=== PATIENT | female | born 1950 | race Caucasian/White ===

== ENCOUNTER → 2016-06-13 | Outpatient (CLI) | payer MEDICARE, OTHER | LOC: MW.CHFP 15:47 | PROVIDERS: ATTEND Emergency Medicine | DX: I10 Essential (primary) hypertension (principal); Z53.9 Procedure and treatment not carried out, unspecified reason ==

== ENCOUNTER → 2016-06-20 | Outpatient (CLI) | payer MEDICARE, OTHER ==
[2016-06-20 10:49] LABS: CHLORIDE,CL 98 mmol/L (98-110); SODIUM,NA 130 mmol/L (136-146)
== END ==
LOC: MW.CHFP 09:56
PROVIDERS: ATTEND Emergency Medicine
DX: I10 Essential (primary) hypertension (principal); E87.1 Hypo-osmolality and hyponatremia
CPT/HCPCS: 36415; 80053; 80061; 99214

== ENCOUNTER 2019-03-18 07:40 | Day surgery (SDC) | payer MEDICARE, OTHER ==
[~2019-03-18 07:40] MED LIST: 50% Dextrose in Water 50 ML Syringe IVPUSH PRN; Albuterol 0.083% 2.5 MG/3 ML Neb Soln NEB PRN; Atropine 0.1 MG/ML 10 ML Syringe IVPUSH PRN; EPINEPHrine 1:10,000 1 MG/10 ML Syringe IVPUSH PRN; Lactated Ringers 1,000 ML IV SCH; Midazolam 1 MG/ML 2 ML SDV ONE; Naloxone 0.4 MG/ML Syringe IVPUSH PRN; Phenylephrine 1% 10 MG/ML SDV ONE; Propofol 200 MG/20 ML SDV ONE; ePHEDrine 50 MG/ML SDV ONE; fentaNYL 100 MCG/2 ML SDV IVPUSH PRN; fentaNYL 100 MCG/2 ML SDV ONE
--- NOTE | 2019-03-18 08:17 | PCM.PREANE ---
Preanesthetic Assessment - Anesthesia/Transfusion/Family Hx Anesthesia History: Prior Anesthesia Without Reaction Other Type of Anesthesia Reaction Comment: "my father could not take anesthesia " "no problems myself" Family History of Anesthesia Reaction: No Transfusion History: Prior Transfusion Without Reaction Intubation History: Unknown - Review of Systems General: No Symptoms Pulmonary: No Symptoms Cardiovascular: No Symptoms Gastrointestinal: Other (change in bowel habits and rectal 'leaking') Neurological: No Symptoms Other: Reports: None - Physical Assessment Height: 5 ft 7 in Weight: 77.111 kg ASA Class: 2 Mental Status: Alert & Oriented x3 Airway Class: Mallampati = 2 Dentition: Reports: Normal Dentition Thyro-Mental Finger Breadths: 3 Mouth Opening Finger Breadths: 3 ROM/Head Extension: Full Lungs: Clear to Auscultation, Normal Respiratory Effort Cardiovascular: Regular Rate, Regular Rhythm - Allergies Allergies/Adverse Reactions: Allergies Allergy/AdvReac Type Severity Reaction Status Date / Time acetaminophen [From Percocet] Allergy "my body Unverified 03/14/19 10:47 wouldnt accept it" codeine Allergy "my body Unverified 03/14/19 10:47 wouldnt accept it" meperidine HCl [From Demerol] Allergy "my Unverified 03/14/19 10:47 wouldnt accept it" morphine Allergy "my Unverified 03/14/19 10:47 wouldnt accept it" oxycodone HCl [From Percocet] Allergy "my body Unverified 03/14/19 10:47 wouldnt accept it" propoxyphene Allergy "my body Verified 03/14/19 10:47 [From Darvocet-N] wouldnt accept it" - Blood Blood Available: No - Anesthesia Plan Pre-Op Medication Ordered: None - Acknowledgements Anesthesia Type Planned: MAC Pt an Appropriate Candidate for the Planned Anesthesia: Yes Alternatives and Risks of Anesthesia Discussed w Pt/Guardian: Yes Pt/Guardian Understands and Agrees with Anesthesia Plan: Yes PreAnesthesia Questionnaire HEENT History: Reports: None Cardiovascular History: Reports: Hypertension, Other (See Below) (h/o lip angioedema 5 months ago - reason unknown, most likely due to medication change) Respiratory History: Reports: None Gastrointestinal History: Reports: None Genitourinary History: Reports: None Musculoskeletal History: Reports: Fracture, Osteoarthritis Neurological History: Reports: None, Vertigo (paroxysmal positional vertigo- not last year or two) Psychiatric History: Reports: None Endocrine/Metabolic History: Reports: None Hematologic History: Reports: Blood Transfusion(s) Immunologic History: Reports: None Oncologic (Cancer) History: Reports: None Dermatologic History: Reports: None - Past Surgical History Head Surgeries/Procedures: Reports: None HEENT Surgical History: Reports: None Cardiovascular Surgical History: Reports: None Respiratory Surgical History: Reports: None GI Surgical History: Reports: Other (See Below) Other GI Surgeries/Procedures: 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 ( 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 surgeries over 6 years due to this injury) Female Surgical History: Reports: Breast Implant Endocrine Surgical History: Reports: None Neurological Surgical History: Reports: None Musculoskeletal Surgical History: Reports: Hip Replacement, Other (See Below) Other Musculoskeletal Surgeries/Procedures:: ORIF of left humerous, tyshawn total hip arthroplasties Oncologic Surgical History: Reports: None Dermatological Surgical History: Reports: None - SUBSTANCE USE Smoking Status *Q: Current Some Day Smoker Tobacco Use Within Last Twelve Months: Cigarettes - HOME MEDS Home Medications: Home Meds Chlorthalidone 25 mg PO DAILY 03/14/19 [History] Cholecalciferol (Vitamin D3) [Vitamin D3] 1,000 units PO DAILY 03/14/19 [History ] Multivitamin [My Favorite Multiple] 1 dose PO DAILY 03/14/19 [History] amLODIPine [Norvasc] 5 mg PO DAILY 03/14/19 [History] - CURRENT (IN HOUSE) MEDS Current Meds: Current Medications Albuterol (Proventil Neb Soln) 2.5 mg NEB ONETIME PRN PRN Reason: Wheezing Atropine Sulfate (Atropine 0.1 Mg/Ml) 0.5 mg IVPUSH ASDIRECTED PRN PRN Reason: Hypo-perfusion Stop: 03/19/19 07:31 Atropine Sulfate (Atropine 0.1 Mg/Ml) 1 mg IVPUSH ASDIRECTED PRN PRN Reason: Hypo-Perfusion Dextrose/Water (Dextrose 50% In Water) 50 ml IVPUSH ASDIRECTED PRN PRN Reason: Hypoglycemia Epinephrine HCl (Epinephrine 1:10,000) 1 mg IVPUSH ASDIRECTED PRN PRN Reason: ACLS Guidelines Fentanyl (Sublimaze) 50 mcg IVPUSH Q5M PRN PRN Reason: Pain Lactated Ringer's (Ringers, Lactated) 1,000 mls @ 125 mls/hr IV ASDIRECTED GEN Naloxone HCl (Narcan) 0.1 mg IVPUSH ASDIRECTED PRN PRN Reason: Respiratory Depression Discontinued Medications Ephedrine Sulfate (Ephedrine Sulfate) Confirm Administered Dose 50 mg .ROUTE .STK-MED ONE Stop: 03/18/19 07:16 Fentanyl (Sublimaze) Confirm Administered Dose 100 mcg .ROUTE .STK-MED ONE Stop: 03/18/19 07:14 Midazolam HCl (Versed 1 Mg/Ml) Confirm Administered Dose 2 mg .ROUTE .STK-MED ONE Stop: 03/18/19 07:14 Phenylephrine HCl ([place]if[place]-Synephrine) Confirm Administered Dose 10 mg .ROUTE .STK- MED ONE Stop: 03/18/19 07:16 Propofol (Diprivan 20 Ml) Confirm Administered Dose 200 mg .ROUTE .STK-MED ONE Stop: 03/18/19 07:14
[2019-03-18] MEDS ORDERED: Midazolam 1 MG/ML 2 ML SDV ONE (08:26)
[2019-03-18] MEDS ORDERED: Lactated Ringers 1,000 ML IV SCH (09:00)
--- NOTE | 2019-03-18 09:01 | PCM.OPNOTE ---
- General Post-Op/Procedure Note Date of Surgery/Procedure: 03/18/19 Operative Procedure(s): Colonoscopy with multiple cold polypectomies from the cecum, ascending colon, transverse colon and rectum. Pre Op Diagnosis: Change in bowel habits. Rectal leakage. Post-Op Diagnosis: Cecum, ascending colon, transverse colon and rectal polyps Anesthesia Technique: MAC (ASA II) Primary Surgeon: Christiano Soto Condition: Good Free Text/Narrative:: DICTATION [id number] CPT CODE [id number]
--- NOTE | 2019-03-18 09:19 | PCM.POSTAN ---
POST ANESTHESIA ASSESSMENT - MENTAL STATUS Mental Status: Alert, Oriented - VITAL SIGNS Vital Signs: Last Vital Signs Temp 36.3 C 03/18/19 08:59 Pulse 66 03/18/19 09:14 Resp 17 03/18/19 09:14 BP 106/69 03/18/19 09:14 Pulse Ox 95 03/18/19 09:14 - RESPIRATORY Respiratory Status: Respiratory Rate WNL, Airway Patent, O2 Saturation Stable - CARDIOVASCULAR CV Status: Pulse Rate WNL, Blood Pressure Stable - GASTROINTESTINAL GI Status: No Symptoms - PAIN Pain Score: 0 - POST OP HYDRATION Hydration Status: Adequate & Stable - OBSERVATIONS Free Text/Narrative:: no anesthesia problems
--- NOTE | 2019-03-18 09:34 | PCM48HPAN ---
Post Anesthesia Note - EVALUATION WITHIN 48HRS OF ANESTHETIC Vital Signs in Normal Range: Yes Patient Participated in Evaluation: Yes Respiratory Function Stable: Yes Airway Patent: Yes Cardiovascular Function Stable: Yes Hydration Status Stable: Yes Pain Control Satisfactory: Yes Nausea and Vomiting Control Satisfactory: Yes Mental Status Recovered: Yes Vital Signs: Last Vital Signs Temp 36.3 C 03/18/19 08:59 Pulse 66 03/18/19 09:14 Resp 17 03/18/19 09:14 BP 106/69 03/18/19 09:14 Pulse Ox 95 03/18/19 09:14 - COMMENTS/OBSERVATIONS Free Text/Narrative:: no anesthesia problems
[2019-03-18 11:35] VITALS: BP 106/70; PULSE 73
--- NOTE | 2019-03-18 14:33 | OR ---
SURGEON: Christiano Soto M.D. DATE OF PROCEDURE: 03/18/2019 OPERATION PERFORMED: Colonoscopy with multiple cold polypectomies from the cecum, ascending colon, transverse colon, and rectum. PRIMARY SURGEON: Christiano Soto MD. ANESTHESIA: MAC ASA CLASSIFICATION: II. PREOPERATIVE DIAGNOSES: 1. Change in bowel habits. 2. Rectal incontinence. POSTOPERATIVE DIAGNOSIS: Colon polyps identified in the cecum, ascending colon, transverse colon, and rectum. DESCRIPTION OF PROCEDURE: The patient was taken to the endoscopy room and positioned on the endoscopy cart in the left lateral decubitus position. Time-out was called for appropriate identification of the patient and procedure. Monitored anesthesia care was provided. The colonoscope was inserted into the rectum and advanced with minimal difficulty to the cecum. The colonoscope was retroflexed to visualize the ascending colon from below, then straightened and slowly withdrawn. One small polyp was encountered in the cecum and this was removed with the cold biopsy forceps. A second polyp was encountered in the ascending colon and also removed with the cold biopsy forceps. The remainder of the ascending colon, hepatic flexure, and proximal transverse colon showed no tumors, polyps, diverticula, or angiodysplastic changes. A third polyp was encountered in the mid transverse colon and removed with the cold biopsy forceps. Remainder of the transverse colon, splenic flexure, descending colon, and sigmoid colon showed no other tumors, polyps, diverticula, or angiodysplastic changes. Two small polyps were encountered in proximity in the rectum and also removed with the cold biopsy forceps. The colonoscope was then retroflexed to visualize the anal orifice from above. No tumors, polyps, or acute hemorrhoidal changes were noted. The colonoscope was then straightened, the rectum aspirated, and the colonoscope removed. The patient tolerated the procedure well and was taken to recovery room in stable condition. DIANA / LUCIA /[id number]
== END 2019-03-18 09:55 | disposition home or self-care (01) ==
LOC: MW.SDS 07:40
PROVIDERS: ATTEND Surgery
DX: D12.0 Benign neoplasm of cecum (principal); D12.2 Benign neoplasm of ascending colon; K63.5 Polyp of colon; K62.1 Rectal polyp; R15.9 Full incontinence of feces; I10 Essential (primary) hypertension; F17.210 Nicotine dependence, cigarettes, uncomplicated; M19.90 Unspecified osteoarthritis, unspecified site; Z88.5 Allergy status to narcotic agent; Z79.899 Other long term (current) drug therapy; Z88.6 Allergy status to analgesic agent
CPT/HCPCS: 45380; J2250; J2370; J2704; J3010; J7120; 00811; 88305

== ENCOUNTER 2024-10-17 20:27 | Emergency (ER) | payer MEDICARE, OTHER ==
[2024-10-17] MEDS: Diphtheria,Pertussis(Acell),Tetanus Vaccine 0.5 ML Syringe IM ONE (21:02)
[2024-10-17] MEDS: Bacitracin Oint 1 GM U/D Packet TOP ONE (21:53)
[2024-10-17 21:54] VITALS: BP 133/84; PULSE 79
== END 2024-10-17 21:54 | disposition home or self-care (01) ==
LOC: MW.ED 20:27
DX: S81.852A Open bite, left lower leg, initial encounter (principal); I10 Essential (primary) hypertension; Z88.8 Allergy status to other drugs, medicaments and biological substances; Z88.5 Allergy status to narcotic agent; Z79.899 Other long term (current) drug therapy; Z23 Encounter for immunization; W54.0XXA Bitten by dog, initial encounter
CPT/HCPCS: 12001; 90471; 90715; 99283; A9270; 12002

== ENCOUNTER 2024-10-20 12:47 | Emergency (ER) | payer MEDICARE, OTHER ==
[2024-10-20 13:55] LABS: A/G RATIO 0.9 (0.9-1.6); ALANINE AMINOTRANSFERASE,ALT 26 IU/L (14-63); ASPARTATE AMNIOTRANSFERASE,AST 24 IU/L (15-37); BILIRUBIN TOTAL 0.4 mg/dL (0.2-1.0); BLOOD UREA NITROGEN,BUN 23 mg/dL (7.0-18.0); CARBON DIOXIDE,CO2 25.4 mmol/L (21.0-32.0); CHLORIDE,CL 95 mmol/L (98-107); CREATININE 1.0 mg/dL (0.6-1.0); GLUCOSE RANDOM 104 mg/dL (74-106); POTASSIUM,K 4.1 mmol/L (3.5-5.1); PROTEIN TOTAL,TP 7.1 g/dL (6.4-8.2); SODIUM,NA 130 mmol/L (136-145)
[2024-10-20 13:56] LABS: BASOPHILS ABSOLUTE AUTO 0.11 K/uL (0.00-0.20); BASOPHILS PERCENT AUTO 1.1 % (0.0-1.0); EOSINOPHILS ABSOLUTE AUTO 0.15 K/uL (0.00-0.45); EOSINOPHILS PERCENT AUTO 1.4 % (0.0-6.0); ESTIMATED GFR 59 mL/min (>60); IMMATURE GRAN ABSOLUTE AUTO 0.05 K/uL (0.00-0.05); IMMATURE GRAN PERCENT AUTO 0.5 % (0.0-0.4); LYMPHOCYTES ABSOLUTE AUTO 1.42 K/uL (1.00-4.80); LYMPHOCYTES PERCENT AUTO 13.7 % (24.0-44.0); MEAN PLATELET VOLUME 10.5 fL (9.4-12.3); MONOCYTES ABSOLUTE AUTO 0.85 K/uL (0.00-0.80); MONOCYTES PERCENT AUTO 8.2 % (0.0-8.0); NEUTROPHILS ABSOLUTE AUTO 7.82 K/uL (1.80-7.70); NEUTROPHILS PERCENT AUTO 75.1 % (41.0-71.0); NRBC ABSOLUTE 0.00 K/uL (0.00-0.02); NRBC PERCENT 0.0 /100WBC (0.0-0.2); PLATELET COUNT,PLT 228 K/uL (150-400); RED BLOOD CELL COUNT 4.47 M/uL (4.10-5.30); WHITE BLOOD CELL COUNT,WBC 10.40 K/uL (3.9-11.3)
[2024-10-20 14:00] LABS: LACTIC ACID 0.7 mmol/L (0.4-2.0)
[2024-10-20] MEDS: Iopamidol 755 MG/ML 500 ML Multipack Bottle IVPUSH STA (14:55)
[2024-10-20] MEDS ORDERED: ceFAZolin 2 GM in Water For Injection, Sterile 20 ML IVPUSH ONE (16:11)
[2024-10-20] MEDS: Amoxicillin/Clavulanate K 875-125 MG Tab PO ONE (18:16)
[2024-10-20 18:20] VITALS: BP 146/85; PULSE 62
== END 2024-10-20 18:28 | disposition home or self-care (01) ==
LOC: MW.ED 12:47
DX: L03.116 Cellulitis of left lower limb (principal); S81.852D Open bite, left lower leg, subsequent encounter; I10 Essential (primary) hypertension; Z79.899 Other long term (current) drug therapy; Z88.8 Allergy status to other drugs, medicaments and biological substances; Z88.5 Allergy status to narcotic agent; W54.0XXD Bitten by dog, subsequent encounter
CPT/HCPCS: 36415; 73701; 80053; 83605; 85025; 86140; 99284; A9270; Q9967; 99283

== ENCOUNTER 2024-10-22 11:10 | Emergency (ER) | payer MEDICARE, OTHER ==
[2024-10-22 11:23] VITALS: BP 129/82; PULSE 81
== END 2024-10-22 11:47 | disposition home or self-care (01) ==
LOC: MW.ED 11:10
DX: Z48.00 Encounter for change or removal of nonsurgical wound dressing (principal); I10 Essential (primary) hypertension; M19.90 Unspecified osteoarthritis, unspecified site; Z75.3 Unavailability and inaccessibility of health-care facilities; Z79.899 Other long term (current) drug therapy; Z88.5 Allergy status to narcotic agent; Z88.8 Allergy status to other drugs, medicaments and biological substances
CPT/HCPCS: 99282

== ENCOUNTER 2024-12-06 08:03 | Day surgery (SDC) | payer MEDICARE, OTHER ==
[~2024-12-06 08:03] MED LIST changes: -50% Dextrose in Water 50 ML Syringe IVPUSH PRN; -Albuterol 0.083% 2.5 MG/3 ML Neb Soln NEB PRN; -Atropine 0.1 MG/ML 10 ML Syringe IVPUSH PRN; -EPINEPHrine 1:10,000 1 MG/10 ML Syringe IVPUSH PRN; -Lactated Ringers 1,000 ML IV SCH; -Midazolam 1 MG/ML 2 ML SDV ONE; -Naloxone 0.4 MG/ML Syringe IVPUSH PRN; -Phenylephrine 1% 10 MG/ML SDV ONE; -Propofol 200 MG/20 ML SDV ONE; +Sodium Chloride 0.9% 10 ML Syringe FLUSH PRN; +Sodium Chloride 0.9% 2.5 ML Syringe FLUSH PRN; -ePHEDrine 50 MG/ML SDV ONE; -fentaNYL 100 MCG/2 ML SDV IVPUSH PRN; -fentaNYL 100 MCG/2 ML SDV ONE
[2024-12-06] MEDS: Lactated Ringers 1,000 ML IV SCH (09:05)
[2024-12-06] MEDS ORDERED: propofoL 500 MG/50 ML 50 ML ONE (09:21)
[2024-12-06 13:41] VITALS: BP 120/70; PULSE 62
== END 2024-12-06 11:15 | disposition home or self-care (01) ==
LOC: MW.SDS 08:03
PROVIDERS: ATTEND Surgery
DX: D12.3 Benign neoplasm of transverse colon (principal); K63.5 Polyp of colon; K63.89 Other specified diseases of intestine; K57.30 Diverticulosis of large intestine without perforation or abscess without bleeding; I10 Essential (primary) hypertension; Z87.891 Personal history of nicotine dependence; Z88.5 Allergy status to narcotic agent; Z88.8 Allergy status to other drugs, medicaments and biological substances; Z79.899 Other long term (current) drug therapy
CPT/HCPCS: 43239; 45380; J2003; J2704; J7120; 00813; 99100